=== PATIENT | female | born 1960 | race Caucasian/White ===

== ENCOUNTER 2024-06-13 22:58 | Emergency (ER) | payer SELFPAY ==
[2024-06-13 23:04] VITALS: BP 187/117; PULSE 90; RESP 16; TEMP 36.7; O2SAT 94; BMI 21.9
[2024-06-13 23:55] VITALS: BP 166/79; PULSE 80; RESP 15; O2SAT 99
--- NOTE | 2024-06-14 00:08 | ED_ITS ---
HPI - Dental/Oral General: Chief complaint: Dental/Oral Stated complaint: Left Side Of Face Swollen Time Seen by Provider: 06/13/24 23:15 Source: patient Mode of arrival: ambulatory Limitations: no limitations History of Present Illness: Patient is a 63-year-old female presenting to the emergency department complaining of left-sided facial pain and swelling beginning this morning. She states that as specifically worsening over the past few hours. Does not see a dentist, history of poor dental care and multiple cavities. Denies any trouble breathing or trouble handling secretions. No fever, chills, nausea/vomiting, or other symptoms at this time. Pain rated to be a 10/10. Worse with palpation and with chewing. Onset (ago): hour(s) Duration: constant Relieving factors: nothing Exacerbating factors: chewing and other (Palpation) Context: history of dental caries and poor dental care Associated symptoms: Denies ear or mastoid pain, fever(s) or odynophagia Treatment prior to arrival: none Related Data Previous Rx's Medication Instructions Recorded amoxicillin 875 mg-potassium 1 tab PO BID 10 days #20 tabs 06/14/24 clavulanate 125 mg tablet prednisone 20 mg tablet 60 mg (3 x 20 mg) PO ONCE 5 days 06/14/24 #15 tabs Allergies Allergy/AdvReac Type Severity Reaction Status Date / Time No Known Allergies Allergy Verified 06/13/24 23:08 Review of Systems General: Reports: 10 or more systems reviewed and unremarkable except in HPI and below Const: Denies: fever(s), chills or fatigue Eyes: Denies: change in vision ENMT: Reports: dental pain (With facial swelling); Denies: throat pain, uvular edema, odynophagia, ear or mastoid pain or nasal discharge Card: Denies: chest pain, palpitations, swelling of feet/ankles or lightheadedness Resp: Denies: dyspnea, productive cough or wheezing GI: Denies: abdominal pain, nausea, vomiting, diarrhea or constipation : Denies: flank pain, difficulty voiding, dysuria or urinary frequency Musc: Denies: neck pain, back pain or joint pain Skin/Breast: Denies: rash Neuro: Denies: headache(s), numbness in extremities or weakness in extremities Physical Exam Const: COMMON NORMALS: no acute distress and no limitations GENERAL APPEARANCE: cooperative, comfortable and well developed ORIENTATION/CONSCIOUSNESS: Yes awake HENMT: COMMON NORMALS: normocephalic, atraumatic and hearing grossly normal bilaterally HEAD & SCALP: normocephalic and atraumatic FACE & SINUS: edema on the left and Facial tenderness on exam of face and sinuses on the left TEETH & GINGIVA: Yes abnormal tooth and associated gingiva upper left tender and with associated gingival edema, Yes caries, Yes multiple restorations and Yes poor dentition THROAT: posterior oropharynx normal, tonsils normal and uvula midline; no uvular edema Eye: COMMON NORMALS: Equal, round and reactive pupils present, EOMs intact bilaterally and conjunctivae normal CONJUNCTIVA: Yes conjunctivae normal PUPIL: Yes Equal, round and reactive pupils present Neck/C-Spine: COMMON NORMALS: full ROM, supple and no JVD Resp: COMMON NORMALS: normal respiratory effort, No retractions, No use of accessory muscles and clear to auscultation bilaterally AUSCULTATION: clear to auscultation bilaterally Cardio: COMMON NORMALS: no JVD, regular rate, regular rhythm, No clicks present (Cardio), No murmurs present (Cardio) and No rub (Cardio) RATE: regular rate RHYTHM: regular rhythm Extremity: COMMON NORMALS: normal to inspection, full ROM and capillary refill normal Skin: COMMON NORMALS: no rashes or lesions noted GENERAL SKIN EXAM: no rashes or lesions noted Course Vital Signs: Vital signs: Vital Signs Temperature 98.1 F 06/13/24 23:04 Pulse Rate 80 06/13/24 23:55 Respiratory Rate 15 06/13/24 23:55 Blood Pressure 166/79 06/13/24 23:55 Pulse Oximetry 99 06/13/24 23:55 Oxygen Delivery Me thod Room Air 06/13/24 23:55 MDM - Dental/Oral Medical Decision Making Patient presenting with clinical signs and symptoms of a dental abscess. Poor dental care, does not see a dentist regularly. No physical exam findings concerning for respiratory compromise, did have quite a bit of soft tissue swelling to the left face with significant tenderness to palpation. This favors dental abscess at this time that we will treat with antibiotics and steroids. Will have her follow-up with a dentist for further evaluation, and return with any new or worsening. No radiology studies performed this visit Discharge Plan Discharge Patient Disposition: Home Clinical Impression: Dental abscess Condition: Stable Prescriptions: New prednisone 20 mg tablet 60 mg PO ONCE 5 Days Qty: 15 0RF amoxicillin-pot clavulanate 875-125 mg tablet 1 tab PO BID 10 Days Qty: 20 0RF Discharge Orders: Discharge ED (Routine); Ordered 06/14/24 Ordered By: Newton Jones Patient Instructions: Dental Abscess (ED) Activity Restrictions/Additional Instructions: Take antibiotics as prescribed. Take steroids. Tylenol/ibuprofen for pain. Please call dentist in the morning to schedule an appointment. If you start hav ing any difficulty breathing, trouble handling your secretions, or other concerning symptoms please return to the emergency department. Coding Level of Care Code ED [employer] Psychiatrist for Roro Foster
== END 2024-06-14 00:34 | disposition home or self-care (01) ==
PROVIDERS: Emergency Provider Physician Assistant
DX: K04.7 Periapical abscess without sinus (principal)
CPT/HCPCS: 99283

== ENCOUNTER 2025-05-15 07:02 | Observation (INO) | payer SELFPAY ==
[2025-05-15] VITALS (24 sets, daily range): BP systolic 123–181; BP diastolic 72–103; PULSE 68–109; RESP 16–30; TEMP 36.3–37.1; O2SAT 83–100; BMI 23.5
--- NOTE | 2025-05-15 07:08 | ECG_ITS ---
[facility] Test Date: 2025-05-15 Pat Name: Soniya Vanegas Department: Room: Gender: Female Biostatistician: : 1960 Requested By: Jamaal Calhoun Order Number: [id number] Luis MD: Danielle Rahman M.D. Measurements Intervals Sharon Rate: 79 P: 0 WA: 0 QRS: 17 QRSD: 91 T: 42 QT: 495 QTc: 570 Interpretive Statements regular supraventricular rhythm Heavy baseline artifacts; Need to repeat the study. Further interpretation is not possible Electronically Signed On 05-16-2025 22:13:18 IT SYSTEMS ANALYST by Danielle Rahman M.D. [id number]
--- NOTE | 2025-05-15 07:08 | CT_ITS ---
WS: [id number] CT HEAD TECHNIQUE: Noncontrast CT of the head obtained from the skullbase to the vertex. CLINICAL INFORMATION: Dizziness COMPARISON: 2016 DLP: 1122.[address] scans at [facility] use at least one of these dose optimization techniques: automated exposure control; mA and/or kV adjustment per patient size (includes targeted exams where dose is matched to clinical indication); or iterative reconstruction. FINDINGS: No evidence of intracranial hemorrhage or mass effect. Ventricular system and basal cisterns are patent. Mild small vessel changes with mild parenchymal volume loss. No extra-axial fluid collections. No evidence of mass or mass effect. Vascular calcification. Paranasal sinuses and mastoid air cells are well aerated. .Normal visualized soft tissues. CT/CT head wo con* [id number] IMPRESSION: 1. No evidence of intracranial hemorrhage or mass effect. 2. No acute intracranial findings.
--- NOTE | 2025-05-15 07:08 | XR_ITS ---
WS: [id number] Portable AP upright chest, 05/15/2025 Clinical Data: dyspnea/cough Comparison: Portable chest, 03/13/2019 Findings: There is a patchy opacity in the right lower lobe and over the surface of the left diaphragm which could represent minimal pneumonia and/or atelectasis. No nodules, masses or effusions are seen. The heart is normal. The pulmonary vascularity is not increased. No pneumonia or pneumothorax is seen. The aortic arch and descending thoracic aorta show tortuosity. XR/XR chest 1V portable [id number] Impression: 1. Minimal patchy opacity in right lower lobe and over the surface of the left diaphragm. 2. Atherosclerosis.
--- NOTE | 2025-05-15 07:29 | W.ED.GENADLT ---
HPI - General Adult General: Chief complaint: Nausea/Vomiting/Diarrhea Stated complaint: dizzy, off balance, n/v Time Seen by Provider: 05/15/25 07:07 History of Present Illness: 64-year-old female presents emergency room complaining of dizziness with persistent nausea and vomiting. States she feels hot and cold at times she is extremely anxious and is hyperventilating when she first arrived. Symptoms began yesterday morning when she woke up her last known well without symptoms would have been around midnight on 05/12/2025. Patient is a heavy smoker no history of coronary artery disease or previous strokes. She has not had any difficulty with speech swallowing. She has a difficulty with gait because of the dizziness. Related Data Allergies Allergy/AdvReac Type Severity Reaction Status Date / Time No Known Allergies Allergy Verified 06/13/24 23:08 Course Vital Signs: Vital signs: Vital Signs Temperature 97.4 F L 05/15/25 07:06 Pulse Rate 82 05/15/25 07:06 Respiratory Rate 20 H 05/15/25 07:06 Blood Pressure 142/103 05/15/25 07:06 Pulse Oximetry 100 05/15/25 07:06 Oxygen Delivery Me thod Room Air 05/15/25 07:06 Discharge Plan Discharge Condition: Stable Print Language: Maltese Coding Level of Care Code ED Clamp Jig Assembler for Roro Foster NIH stroke score NIHSS Level Of Consciousness - 1a: 0 Level Of Consciousness Questions - 1b: Both Correct Level Of Consciousness Commands - 1c: Both Correct Best Gaze - 2: Normal Facial Palsy - 4: Normal Motor Arm Right - 5: No Drift Motor Arm Left - 5: No Drift Motor Leg Right - 6: No Drift Motor Leg Left - 6: No Drift Limb Ataxia - 7: Absent Sensory - 8: Normal Best Language - 9: No Aphasia Dysarthia - 10: Normal
[2025-05-15 07:31] LABS: ABG PCO2 26.0 mmHg (35-45); ABG PH Result 7.56 (7.35-7.45); Alveolar-Arterial Oxygen Gradi 6.8 mmHg (5-10); Arterial Blood Gas Hematocrit 52.2 % (37-47); Blood Gas Operator Identificat AMH; Blood Gas Sample Site Brachial, right; Blood Gas Sample Type Arterial; Carboxyhemoglobin 2.1 %THgb (0.4-20.1); Glucose Level-ABG 116.0 mg/dL (70-115); HCO3 ABG 23.1 mmol/L (22-26); Ionized Calcium Level - ABG 1.2 mmol/L (1.1-1.4); Methemoglobin 1.1 % (0.4-1.5); Oxygen Saturation ABG 96.1; PO2 ABG 65.6 mmHg (80.0-100.0); PO2 FiO2 Ratio Arterial Blood 312; Potassium Level - ABG 3.3 mmol/L (3.5-5.0); Sodium Level - ABG 140.0 mmol/L (131-143)
--- NOTE | 2025-05-15 07:37 | CT_ITS ---
WS: [id number] CTA HEAD AND NECK TECHNIQUE: Contrast enhanced CTA of the head and neck with coronal and sagittal reformatted images and maximum intensity projection (MIP) images. NASCET criteria utilized. CLINICAL INFORMATION: Posterior stroke COMPARISON: None. DLP: 452.[address] scans at [facility] use at least one of these dose optimization techniques: automated exposure control; mA and/or kV adjustment per patient size (includes targeted exams where dose is matched to clinical indication); or iterative reconstruction. FINDINGS: RIGHT: RIGHT common carotid artery is patent. No significant RIGHT ICA stenosis. RIGHT ICA is patent to the skull base. LEFT: LEFT common carotid artery is patent. No significant LEFT ICA stenosis. LEFT ICA is patent to the skull base. RIGHT dominant vertebral artery. Smaller but patent LEFT vertebral artery. Proximal basilar artery is patent. Persistent LEFT COOPERER. Normal vascularity to the COOPERER territory bilaterally. Both ICAs are patent at the skull base. Patent anterior communicating artery. Normal vascularity to the GOLDY and MCA territories bilaterally. No evidence of proximal flow-limiting stenosis. Advanced spondylitic changes cervical spine. Proximal subclavian arteries are patent. CT/CT angio headneck* [id number] IMPRESSION: 1. No significant cervical ICA stenosis. 2. No flow-limiting intracranial stenosis.
[2025-05-15 07:38] LABS: Hematocrit 49.8 % (36-47); Hemoglobin 17.40 g/dL (11.27-16.99); Mean Corpuscular HGB Conc 34.9 g/dL (30-55); Mean Corpuscular Hemoglobin 31.9 pg (27-33); Mean Corpuscular Volume 91.4 fl (85-98); Nucleated Red Blood Cells % 0 %; Platelet Count 259 10^3/cmm (157-399); Red Blood Count 5.45 10^6/uL (3.85-5.65); White Blood Count 7.19 10^3/uL (3.29-11.43)
[2025-05-15] MEDS: LORazepam 2 mg/mL INJ 1 mL IVP (07:43)
[2025-05-15 08:41] LABS: Glucose Urine UA Negative (Normal); Nitrate Urine Negative (Negative); Specific Gravity, Urine 1.014 (1.005-1.030)
[2025-05-15 08:43] LABS: Add Urine Microscopic? YES
[2025-05-15 08:48] LABS: Alanine Aminotransferase 10 U/L (0-33); Albumin Level 4.4 g/dL (3.5-5.2); Alkaline Phosphatase 121 U/L (35-105); Anion Gap 17.7 (5-19); Aspartate Amino Transferase 15 U/L (0-32); Blood Urea Nitrogen 13 mg/dL (8-23); Calcium 9.6 mg/dL (8.5-10.5); Carbon Dioxide 24 mmol/L (22-29); Chloride 101 mmol/L (98-107); Creatinine Clr Calc Pharmacy 82.2568; Globulin 2.7 g/dL (1.3-4.6); Glucose 96 mg/dL (65-115); Osmolality Calculated 288 mOsm/kg (285-295); Potassium 3.7 mmol/L (3.5-5.1); Sodium 139 mmol/L (136-145); Total Protein 7.1 g/dL (6.6-8.7)
--- NOTE | 2025-05-15 09:01 | PC.NURSE ---
Pt to CT scan with mickey Jimenez. Earrings removed with melisa jimenez, myself in room. Placed in speciman cup / left jacket pocket zipped in. Pt aware.
[2025-05-15] MEDS: iohexol 350 mg/mL 500 mL Btl (per mL) IV (09:32)
--- NOTE | 2025-05-15 12:34 | P.HP_ITS ---
Providers/Chief Complaint 2 Admitting Physician: Alexis Reid Chief Complaint: dizzy, off balance, n/v History of Present Illness Soniya Vanegas is a 64 year old woman with no established past medical history in the chart who presented to the emergency department for acute onset dizziness with nausea and vomiting. Last known well was Thursday night; symptoms began yesterday morning and persisted into today. On initial presentation, felt anxious and was hyperventilating. Describes spinning sensation inside my head and [id number] rather than up-and-down; dizziness worsens with movement. Denies fever, chills, ear pain, sore throat, diarrhea, rashes, dysuria, reduced hearing, ear drainage, or prior stroke/heart attack. Reports profuse sweating on awakening the last two mornings and a mild cough. Unable to tolerate oral fluids without vomiting; ate two pieces of toast yesterday and has vomited after small sips of water. Notes transient arm tingling/numbness after blood pressure cuff inflation. 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 Prior similar episodes occurred twice in recent months and resolved by mid-afternoon. Reports heavy cigarette smoking (about 2.5 packs/day); in the past two days smoked fewer due to feeling ill. Uses marijuana sometimes. Remote history of dental abscess in 2023. In the ED, received aspirin, lorazepam (Ativan), and intravenous fluids. Review of Systems 2 Const: Reports: change in appetite; Denies: fever(s), chills, body aches or malaise ENMT: Denies: throat pain Card: Denies: chest pain, edema, pre-syncope or dyspnea on exertion Resp: Denies: dyspnea, productive cough, change in phlegm color or hemoptysis GI: Reports: nausea and vomiting; Denies: abdominal pain, diarrhea, constipation, hematochezia or melena : Denies: flank pain, urinary frequency or hematuria Musc: Denies: back pain, joint swelling or joint redness Skin/Breast: Denies: rash or new lesions Neuro: Reports: vertigo; Denies: headache(s) or confusion Medications/Allergies Home Medications ?Medication ?Instructions ?Recorded ?Confirmed ?Last Taken ?Type No Known Home Medications 05/15/2510/04 Unknown History Allergies Allergy/AdvReac Type Severity Reaction Status Date / Time No Known Allergies Allergy Verified 06/13/24 23:08 PFSH Acute 2 PFSH: Social History (Updated 05/15/25 @ 11:54 by Alexis Reid MD) Smoking and tobacco/nicotine status: current every day tobacco/nicotine user Vitals/I&O/Wt Last Vital Signs Temp 97.4 F L 05/15/25 07:06 Pulse 81 05/15/25 11:43 Resp 17 05/15/25 11:38 BP 158/88 05/15/25 11:43 Pulse Ox 96 05/15/25 11:43 O2 Del Method Room Air 05/15/25 11:58 Weight last 48 hrs Weight 68.039 kg Weight 68.039 kg Physical Exam 2 Const: COMMON NORMALS: patient oriented x3 and alert GENERAL APPEARANCE: c ooperative ORIENTATION/CONSCIOUSNESS: Yes awake HENMT: COMMON NORMALS: oropharynx normal Neck/C-Spine: COMMON NORMALS: no JVD Resp: COMMON NORMALS: normal respiratory effort and clear to auscultation bilaterally AUSCULTATION: clear to auscultation bilaterally Cardio: COMMON NORMALS: no JVD, regular rhythm, S1 normal heart sound present, S2 normal heart sound present and No murmurs present (Cardio) RHYTHM: regular rhythm HEART SOUNDS: S1 normal heart sound present and S2 normal heart sound present GI: COMMON NORMALS: Normal to inspection, nondistended, normoactive bowel sounds present, Soft to palpation and non-tender PALPATION: Yes Soft to palpation Extremity: COMMON NORMALS: no joint enlargement and no pedal edema Neuro: COMMON NORMALS: patient oriented x3 and moves all extremities S ENSORIUM/ORIENTATION: Yes alert OTHER: She is awake and alert, conversant. Following directions, although somewhat slowed in responses. No difficulty with horizontal tracking. Without noted horizontal nystagmus. Visual coppola full to confrontation, no visual extinction. Sensory exam symmetrical. No sensory extinction. No upper extremity drift. Minimal right lower extremity drift. FNF normal. Mrvy-nf-[id number] without difficulty. 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 Unable to perform. Skin: COMMON NORMALS: no rashes or lesions noted GENERAL SKIN EXAM: no rashes or lesions noted Data 05/15/25 07:33 05/15/25 08:21 A&P Assessment and plan 1. Vertigo: Acute onset vertiginous sensation with associated nausea/vomiting since yesterday morning; last known well Thursday night; symptoms worsen with movement; prior two similar episodes resolved by mid-afternoon; exam equivocal due to compromised vision in one eye. Possible posterior circulation CVA. Risk factors with elevated risk of cardiovascular disease discussed with her. Encouraged smoking cessation. Possible undiagnosed HTN. EKG on my interpretation possible atrial flutter although very poor quality study. Monitor on telemetry. Repeat EKG. Follow-up official read. - Hints exam equivocal, additionally appears to have mild drift in the right lower extremity. Strong CV risk factors. Discussed pursuing MRI of the brain to further assess for possible ischemic stroke. Symptoms for over 24 hours, was not found to be a candidate for TNK intervention on presentation. No large vessel occlusion on CTA. Reviewed vitals, CBC, ABG, CMP, UA, CT head, CTA head and neck, chest x-ray, EKG, neuroretinal, discussed with ED provider. - Continue aspirin (aspirin already given in ED; plan to repeat). - Nausea and vomiting with poor oral intake, dehydration. Provide intravenous hydration. LR 75 mL/h. Monitor for risk of fluid overload. - Nursing dysphagia screen. Advance diet to clear liquids (e.g., broth, gelatin) when able; verify diet orders. - Provide antiemetic medication as needed (PRN for nausea). - Patient declined viral swab; document refusal. Will place on droplet isolation empirically. - Obtain physical therapy (PT), occupational therapy (OT), and speech therapy evaluations. - Request PT evaluation including Ennice-Hallpike maneuver. - Maintain fall precautions. - Monitor blood pressures. - Monitor on telemetry. - Follow-up with neurology after discharge. - Needs a PCP 2. Malaise: Possible aspiration pneumonitis following nausea and vomiting. Versus acute viral illness. Discussed additional assessment. Currently without signs of sepsis. Afebrile, with leukocytosis, no tachycardia. Mild if any cough. Monitor closely. Will hold off on antibiotic for now. - Patient declined viral swab; document refusal. Will place on droplet isolation empirically. 3. Abnormal circadian rhythm: With possible atrial flutter. Difficult to read with poor quality study/baseline. Appears to have extra P waves, monitor on telemetry. Will repeat EKG. Follow-up official read. Plan: Heavy tobacco use : Reports ~2.5 packs/day; smoked less over past two days due to illness. - Encourage smoking cessation. - Provide nicotine patch; offer nicotine lozenges PRN for cravings. Possible undiagnosed hypertension: Blood pressure 158/88, no known history of hypertension, will need to monitor blood pressure. Consider starting antihypertensive if persisting. Permissive hypertension for now. Will need a PCP. Abnormal arterial blood gas (alkalemia) : ABG: pH 7.56, CO2 26, PO2 65.6. Hemoconcentration (elevated hemoglobin) : Hemoglobin 17.4. Microscopic hematuria on urinalysis : Urinalysis: 21?250 RBCs, 1+ ketones, no bacteria, hyaline casts (2.46). Chest X-ray patchy opacities : Chest X-ray: minimal patchy opacity in right lower lobe and over left diaphragmatic surface; atherosclerosis noted. Possible aspiration pneumonitis following nausea and vomiting. PDMP PDMP Reviewed: Not Reviewed Attestations 2 Medical Necessity Statement*: Place in observation for additional assessment and management of possible CVA, vertigo with nausea vomiting with dehydration and lack of oral intake. and High MDM includes amount and/or complexity of data reviewed/ordered [ previous or external records, resulted lab(s)/test(s), ordered lab(s)/test(s), independent test interpretation and other healthcare professional discussion] and described risk of complication, morbidity or mortality of management as documented Diagnoses Vertigo R42 Malaise R53.81 Abnormal circadian rhythm G47.20
--- NOTE | 2025-05-15 12:37 | USCV_ITS ---
Soniya Vanegas Age: 64 Gender: F : 1960 Exam Date: 05/15/2025 15:16 Ordering Phys: Alexis Reid MD Technologist: MARTHA [place] [facility] [place]: CVA BP: 158 / 88 HR: Rhythm: Sinus Technical Quality: MEASUREMENTS (Male / Female) Normal Values 2D ECHO LV Diastolic Diameter PLAX 5.0 cm 4.2 - 5.9 / 3.9 - 5.3 cm IVS Diastolic Thickness 0.8 cm 0.6 - 1.0 / 0.6 - 0.9 cm IVS Systolic Thickness 0.9 cm LVPW Diastolic Thickness 0.9 cm 0.6 - 1.0 / 0.6 - 0.9 cm LVPW Systolic Thickness 0.9 cm LVOT Diameter 2.0 cm LV Ejection Fraction 2D Teich 14.3 % LV Ejection Fraction MOD 4C 68.4 % LV Ejection Fraction MOD 2C 61.7 % LV Ejection Fraction 2C AL 63.5 % LA Diameter 2.7 cm RA Systolic Volume 4C AL 30.5 ml RA Systolic Volume 4C MOD 29.3 ml LA Sys Volume AL 20.1 cm cubed LA Sys Volume Index AL 11.2 cm cubed/m squared Aorta at Sinotubular Diameter 2.7 cm M-MODE LA Ao Ratio MM 1.0 AV Cusp Separation MM 1.9 cm FINDINGS Left Ventricle Normal left ventricular size and systolic function, EF 62%..no regional wall motion abnormalities. Right Ventricle Normal right ventricular size and systolic function. Right Atrium Normal right atrial size. Left Atrium Normal left atrial size. IA Septum Normal appearance of the interatrial septum. Mitral Valve No gross abnormalities noted Aortic Valve No gross abnormalities noted Tricuspid Valve No gross abnormalities noted Pulmonic Valve No gross abnormalities noted Pericardium No pericardial effusion. Aorta Normal aortic annulus size. IVC Normal IVC diameter. CONCLUSIONS Normal left ventricular size and systolic function, EF 62%..no regional wall motion abnormalities. Normal chamber sizes. No gross valvular abnormalities. There is no pericardial effusion. There are no intracardiac masses. No similar previous studies are available for comparison Dr Danielle Rahman MD [facility] (Electronically Signed) Final Date: 15 May 2025 16:34 S
--- NOTE | 2025-05-15 12:39 | MRR_ITS ---
PROCEDURE INFORMATION: Exam: MR Head Without Contrast Exam date and time: 05/15/2025 5:01 PM Age: 64 years old Clinical indication: Dizziness; Additional info: Poss CVA TECHNIQUE: Imaging protocol: Magnetic resonance imaging of the head without contrast. COMPARISON: CT angio headneck* [id number] 05/15/2025 9:08 AM FINDINGS: Brain: No acute intra-axial hemorrhage. No masses. No evidence of restricted diffusion/acute ischemia. No midline shift or mass effect. Mild patchy T2 hyperintensity in hemispheric white matter bilaterally most likely due to chronic microangiopathy. Cerebral ventricles: Normal. No ventriculomegaly. Bones: Unremarkable. Paranasal sinuses: Normal as visualized. No acute sinusitis. Mastoid air cells: Normal as visualized. No mastoid effusion. Orbital cavities: Unremarkable. Soft tissues: Unremarkable. MR/MR head wo con* [id number] IMPRESSION: No acute findings.
--- NOTE | 2025-05-15 12:59 | ECG_ITS ---
[facility] Test Date: 2025-05-15 Pat Name: Soniya Vanegas Department: Room: 262 Gender: Female Web Analytics Developer: : 1960 Requested By: Alexis Reid Order Number: [id number] Luis MD: Danielle Rahman M.D. Measurements Intervals Oriental Rate: 80 P: 65 OH: 173 QRS: -1 QRSD: 91 T: 19 QT: 385 QTc: 447 Interpretive Statements SINUS RHYTHM Compared to ECG 05/15/2025 07:17:25 Supraventricular rhythm no longer present Myocardial infarct finding no longer present T-wave abnormality no longer present Possible ischemia no longer present Electronically Signed On 05-16-2025 22:23:49 DIRECTOR OF SLOT OPERATIONS by Danielle Rahman M.D. [email or web address] [id number]
[2025-05-15 14:23] LABS: Thyroid Stimulating Hormone 1.85 uIU/mL (0.27-4.20)
--- NOTE | 2025-05-15 16:37 | PC.SLP ---
Pt going for MRI. Unable to assess at this time. FUNERAL PRE ARRANGEMENT SPECIALIST will follow-up with the pt tomorrow.
[2025-05-15] MEDS: ondansetron 2 mg/ML SDV 2 mL 4 MG IVP (18:18)
[2025-05-16] VITALS (13 sets, daily range): BP systolic 138–161; BP diastolic 78–83; PULSE 66–82; RESP 16–18; TEMP 36.6–37.1; O2SAT 93–95
[2025-05-16] MEDS: ondansetron 2 mg/ML SDV 2 mL 4 MG IVP ×2 (03:53→08:35)
[2025-05-16 05:38] LABS: Cholesterol 201 mg/dL (0-200); HDL Cholesterol 45 mg/dL (60-100); Triglycerides 97 mg/dL (0-150)
[2025-05-16 05:53] LABS: Estmated Average Glucose 85; Hemoglobin A1C 4.6 % (4.0-6.0)
--- NOTE | 2025-05-16 09:15 | PC.CHAP ---
Pastoral Care Encounter/Spiritual Assessment Type of Contact [] Declined asset protection greeter visit [] Patient/Family/Request visit [] Outpatient visit [] Follow-up visit [] Physician referral [] Code/Alert [x] Routine visit [] Staff referral [] Actively dying [] Patient sleeping [] Family support [] [] Out of room [] Palliative care [] [] Receiving care in room [] Pre-surgical visit [] Trauma [] Long length of stay [] ICU visit [] Other: Relational/Emotional Strength [x] Patient feels connected with others/family/visitors/staff [] Distress [] Loneliness/isolation [] Abandonment Spirituality of Patient [x] Person of Teri [] Attends Hoahaoism of their Teri [x] Believes in Prayer [] Reads Bible or Synagogue materials [] There are Spiritual issues to be addressed Steam Setter Interventions [x] Prayer [x] Active listening [x] Non-anxious presence [x] Spiritual/emotional support [] Crisis/trauma care [] Spiritual counseling [] Bereavement support [] Provided bereavement packet [] Provided Bible/devotional materials [] Provided toy/stuffed animal, coloring book to patient or family member [] Provided Communion [] Anointing/[place] [] Salvation [x] Completed spiritual assessment [] Other: Impact on Illness or Injury [] Angry [] Fearful [] Anxious [] Often cries [] Exhaustion [] Unable to work [] Unable to attend gnosticism [] Unable to walk/stand [] Unable to read [] Unable to drive [] Unable to eat/drink [] Unable to sleep [] Unable to be with family [] Patient intubated [] Other: Summary Time spent with patient 5 min
--- NOTE | 2025-05-16 09:22 | P.PN_ITS ---
Subjective 2 Subjective: She is feeling worse. With more nausea and vomiting. Intermittent vertigo. Denies other new symptoms of numbness or weakness apart from the blood pressure cuff squeezing her left arm. Has not been able to tolerate clears this morning. Also having a headache. Vitals/I&O/Wt Last Vital Signs Temp 98.3 F 05/16/25 07:51 Pulse 72 05/16/25 07:51 Resp 18 05/16/25 07:51 BP 152/83 05/16/25 07:51 Pulse Ox 94 05/16/25 07:51 O2 Del Method Room Air 05/16/25 07:51 05/15/25 05/16/25 05/16/25 22:59 06:59 14:59 Intake Total 1000 / 1000 931.25 / 1931.25 240 / 240 Output Total 600 / 600 200 / 800 300 / 300 Balance 400 / 400 731.25 / 1131.25 -60 / -60 Weight last 48 hrs Weight 75.296 kg Weight 68.039 kg Weight 68.039 kg Physical Exam 2 Const: COMMON NORMALS: patient oriented x3 and alert GENERAL APPEARANCE: c ooperative ORIENTATION/CONSCIOUSNESS: Yes awake HENMT: COMMON NORMALS: oropharynx normal Neck/C-Spine: COMMON NORMALS: no JVD Resp: COMMON NORMALS: normal respiratory effort and clear to auscultation bilaterally AUSCULTATION: clear to auscultation bilaterally Cardio: COMMON NORMALS: no JVD, regular rhythm, S1 normal heart sound present, S2 normal heart sound present and No murmurs present (Cardio) RHYTHM: regular rhythm HEART SOUNDS: S1 normal heart sound present and S2 normal heart sound present GI: COMMON NORMALS: Normal to inspection, nondistended, normoactive bowel sounds present, Soft to palpation and non-tender PALPATION: Yes Soft to palpation Extremity: COMMON NORMALS: no joint enlargement and no pedal edema Neuro: COMMON NORMALS: patient oriented x3 and moves all extremities S ENSORIUM/ORIENTATION: Yes alert OTHER: She is awake and alert, conversant. Following directions, although somewhat slowed in responses. No difficulty with horizontal tracking. Without noted horizontal nystagmus. Visual coppola full to confrontation, no visual extinction. Sensory exam symmetrical. No sensory extinction. No upper extremity drift. Minimal right lower extremity drift. FNF normal. [id number] without difficulty. 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 Unable to perform. Skin: COMMON NORMALS: no rashes or lesions noted GENERAL SKIN EXAM: no rashes or lesions noted Data 05/15/25 07:33 05/15/25 08:21 A&P Assessment and plan 1. Vertigo: Unimproved. More nausea and vomiting. Intermittent vertigo. Was not able to tolerate clears. Otherwise without new neurological symptoms. Reviewed MRI, discussed with her without possible large acute CVA. She is complaining of headache as well. Discussed possibilities, small CVA possible which was not visualized on MRI, alternatively this may be part of constellation of symptoms from acute viral illness as she is now also having headache, malaise. Declined viral swab. Continue droplet isolation. Continue IV hydration for now as she has not been able to tolerate clears yet. Acute onset vertiginous sensation with associated nausea/vomiting since yesterday morning; last known well Thursday night; symptoms worsen with movement; prior two similar episodes resolved by mid-afternoon; exam equivocal due to compromised vision in one eye. With concern for possible atrial flutter yesterday on initial EKG, reviewed second EKG, sinus rhythm. Reviewed telemetry, also all sinus rhythm without arrhythmia. Discussed with her. Discussed consideration of monitor at discharge. - Continue aspirin - Nausea and vomiting with poor oral intake, dehydration. Provide intravenous hydration. LR 75 mL/h. Monitor for risk of fluid overload. - Nursing dysphagia screen. Advance diet to clear liquids (e.g., broth, gelatin) when able; verify diet orders. - Provide antiemetic medication as needed (PRN for nausea). Increased frequency to every 4 hours. - Patient declined viral swab; document refusal. Droplet isolation empirically. - Pending physical therapy (PT), occupational therapy (OT), and speech therapy evaluations. - Request PT evaluation including [place]-Hallpike maneuver. - Maintain fall precautions. - Monitor blood pressures. - Monitor on telemetry. - Consider follow-up with neurology after discharge. - Needs a PCP 2. Malaise: Reviewed oxygenation with possible aspiration pneumonitis, saturating in mid 90s on room air. Afebrile. Today is having some headache. No shortness of breath. Clear liquids for now until tolerating oral intake better. Antiemetic frequency increased. Possible aspiration pneumonitis following nausea and vomiting. Versus acute viral illness. Discussed additional assessment. Currently without signs of sepsis. Afebrile, with leukocytosis, no tachycardia. Mild if any cough. Monitor closely. Will hold off on antibiotic for now. - Patient declined viral swab; document refusal. Will place on droplet isolation empirically. 3. Abnormal heart rhythm: With possible atrial flutter. Difficult to read with poor quality study/baseline. Appears to have extra P waves, monitor on telemetry. Reviewed repeat EKG. Follow-up official read. Plan: Heavy tobacco use : Reports ~2.5 packs/day; smoked less over past two days due to illness. - Encourage smoking cessation. - Requested nicotine patch; offer nicotine lozenges PRN for cravings. Possible undiagnosed hypertension: Blood pressure 152/83, no known history of hypertension, will need to monitor blood pressure. Consider starting antihypertensive if persisting. Permissive hypertension for now. Will need a PCP. Abnormal arterial blood gas (alkalemia) : ABG: pH 7.56, CO2 26, PO2 65.6. Respiratory alkalosis due to tachypnea. Tachypnea resolving. Hemoconcentration (elevated hemoglobin) : Hemoglobin 17.4. IV fluid for dehydration and encourage smoking cessation. Microscopic hematuria on urinalysis : Urinalysis: 21?25 RBCs, 1+ ketones, no bacteria, hyaline casts (2.46). Urine culture obtained and pending. Chest X-ray patchy opacities : Chest X-ray: minimal patchy opacity in right lower lobe and over left diaphragmatic surface; atherosclerosis noted. Possible aspiration pneumonitis following nausea and vomiting. PDMP PDMP Reviewed: Not Reviewed Attestations 2 Medical Necessity Statement*: Continue hospitalization for further care due to persistent nausea vomiting, intolerance of oral intake, vertigo. and High MDM includes amount and/or complexity of data reviewed/ordered [ resulted lab(s)/test(s), ordered lab(s)/test(s) and other healthcare professional discussion] and described risk of complication, morbidity or mortality of management as documented Diagnoses Vertigo R42 Malaise R53.81 Abnormal heart rhythm I49.9
--- NOTE | 2025-05-17 15:47 | PM.DCS ---
Discharge Providers Date of Admission: 05/15/25 10:41 Date of Discharge: May 17, 2025 Attending Provider at Admission: Alexis Reid Attending Provider at Discharge: Alexis Reid Diagnoses at Discharge Discharge Diagnosis 1. Vertigo: 2. Malaise: 3. Abnormal heart rhythm: Reason for Visit Reason for Visit: dizzy, off balance, n/v Brief History: Soniya Vanegas is a 64 year old woman with no established past medical history in the chart who presented to the emergency department for acute onset dizziness with nausea and vomiting. Last known well was Thursday night; symptoms began yesterday morning and persisted into today. On initial presentation, felt anxious and was hyperventilating. Describes spinning sensation inside my head and [id number] rather than up-and-down; dizziness worsens with movement. Denies fever, chills, ear pain, sore throat, diarrhea, rashes, dysuria, reduced hearing, ear drainage, or prior stroke/heart attack. Reports profuse sweating on awakening the last two mornings and a mild cough. Unable to tolerate oral fluids without vomiting; ate two pieces of toast yesterday and has vomited after small sips of water. Notes transient arm tingling/numbness after blood pressure cuff inflation. 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 Prior similar episodes occurred twice in recent months and resolved by mid-afternoon. Reports heavy cigarette smoking (about 2.5 packs/day); in the past two days smoked fewer due to feeling ill. Uses marijuana sometimes. Remote history of dental abscess in 2023. In the ED, received aspirin, lorazepam (Ativan), and intravenous fluids. Hospital Course Hospital Course She had persistence and intermittent recurrence of vertigo with gradual improvement. 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 With some mild cough, headache, malaise, she declined viral studies. Required IV hydration due to persistence of nausea and vomiting and inability to tolerate oral intake and dehydration. This gradually improved and she was able to advance diet to regular. Was assessed by PT and able to ambulate safely. [place]-Hallpike was attempted and was negative although she did not tolerated very well. Stroke risk factors were discussed with her, and she continued on low-dose aspirin, statin, with instructions on smoking cessation, as well as with finding of hypertension started on amlodipine. Initial EKG equivocal for possible atrial flutter, although poor quality study. No atrial fibrillation or flutter on repeat EKG or telemetry monitoring noted in the hospital. She is set up with a quality assurance monitor body at discharge to further assess for atrial flutter or fibrillation episodes as discussed with her. She requested to discharge in the evening of 05/16. On presentation also with mild microscopic hematuria, urine cultures were obtained, with 10-20,000 mixed superficial mony. Please follow-up for resolution of microscopic hematuria and in case of persistence refer for further urological assessment due to history of smoking. Physical Exam Const: COMMON NORMALS: patient oriented x3 and alert GENERAL APPEARANCE: cooperative ORIENTATION/CONSCIOUSNESS: Yes awake HENMT: COMMON NORMALS: oropharynx normal Neck/C-Spine: COMMON NORMALS: no JVD Resp: COMMON NORMALS: normal respiratory effort and clear to auscultation bilaterally AUSCULTATION: clear to auscultation bilaterally Cardio: COMMON NORMALS: no JVD, regular rhythm, S1 normal heart sound present, S2 normal heart sound present and No murmurs present (Cardio) RHYTHM: regular rhythm HEART SOUNDS: S1 normal heart sound present and S2 normal heart sound present GI: COMMON NORMALS: Normal to inspection, nondistended, normoactive bowel sounds present, Soft to palpation and non-tender PALPATION: Yes Soft to palpation Extremity: COMMON NORMALS: no joint enlargement and no pedal edema Neuro: COMMON NORMALS: patient oriented x3 and moves all extremities SENSORIUM/ORIENTATION: Yes alert OTHER: She is awake and alert, conversant. Following directions, although somewhat slowed in responses. No difficulty with horizontal tracking. Without noted horizontal nystagmus. Visual coppola full to confrontation, no visual extinction. Sensory exam symmetrical. No sensory extinction. No upper extremity drift. Minimal right lower extremity drift. FNF normal. [id number] without difficulty. 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 Unable to perform. Skin: COMMON NORMALS: no rashes or lesions noted GENERAL SKIN EXAM: no rashes or lesions noted Discharge Data Studies Completed and Pending Completed Studies During Hospitalization Category Date Time Status CT head wo con* [id number] Stat Cat Scan 05/15/25 07:08 Completed CTA head neck [CT angio headneck* [id number]] Stat Cat Scan 05/15/25 07:37 Completed XR chest 1V portable [id number] Stat Exams 05/15/25 07:08 Completed MR head wo con* [id number] Routine MRI 05/15/25 12:39 Completed CV. echo lmt wo/w bubble [id number] Routine Ultrasound 05/15/25 12:37 Completed Radiology Impressions Chest X-Ray 05/15/25 07:08 Impression: 1. Minimal patchy opacity in right lower lobe and over the surface of the left diaphragm. 2. Atherosclerosis. Head CT 05/15/25 07:08 IMPRESSION: 1. No evidence of intracranial hemorrhage or mass effect. 2. No acute intracranial findings. Head/Neck CTA 05/15/25 07:37 IMPRESSION: 1. No significant cervical ICA stenosis. 2. No flow-limiting intracranial stenosis. Head MRI 05/15/25 12:39 IMPRESSION: No acute findings. Laboratory Results WBC 7.19 10^3/uL (3.29-11.43) 05/15/25 07:33 RBC 5.45 10^6/uL (3.85-5.65) 05/15/25 07:33 Hgb 17.40 g/dL (11.27-16.99) H 05/15/25 07:33 Hct 49.8 % (36-47) H 05/15/25 07:33 MCV 91.4 fl (85-98) 05/15/25 07:33 MCH 31.9 pg (27-33) 05/15/25 07:33 MCHC 34.9 g/dL (30-55) 05/15/25 07:33 RDW 12.6 % (12.1-15.1) 05/15/25 07:33 Plt Count 259 10^3/cmm (157-399) 05/15/25 07:33 MPV 9.4 fL (7.4-10.4) 05/15/25 07:33 Neut % (Auto) 69.2 % 05/15/25 07:33 Lymph % (Auto) 25.0 % 05/15/25 07:33 [place] % (Auto) 4.5 % 05/15/25 07:33 Eos % (Auto) 0.3 % 05/15/25 07:33 Baso % (Auto) 0.7 % 05/15/25 07:33 Neut # (Auto) 4.98 10^3/uL (1.8-7.7) 05/15/25 07:33 Lymph # (Auto) 1.8 10^3/uL (0.8-4.8) 05/15/25 07:33 [place] # (Auto) 0.3 10^3/uL (0.2-0.9) 05/15/25 07:33 Eos # (Auto) 0.0 10^3/uL (0.0-0.8) 05/15/25 07:33 Baso # (Auto) 0.1 10^3/uL (0.0-0.1) 05/15/25 07:33 Nucleated RBC % (auto) 0 % 05/15/25 07:33 Nucleated RBCs # 0.0 /100WBC 05/15/25 07:33 Specimen Type Arterial 05/15/25 07:20 Sample Site Brachial, right 05/15/25 07:20 ABG pH 7.56 (7.35-7.45) H 05/15/25 07:20 ABG pCO2 26.0 mmHg (35-45) L 05/15/25 07:20 ABG pO2 65.6 mmHg (80.0-100.0) L 05/15/25 07:20 ABG PO2/FiO2 Ratio 312 05/15/25 07:20 ABG HCO3 23.1 mmol/L (22-26) 05/15/25 07:20 ABG O2 Saturation 96.1 05/15/25 07:20 ABG Base Excess 2.5 mmol/L (-2.0-2.0) H 05/15/25 07:20 Mc Test N/a 05/15/25 07:20 A-a O2 Gradient 6.8 mmHg (5-10) 05/15/25 07:20 Hematocrit 52.2 % (37-47) H 05/15/25 07:20 Hgb O2 Saturation 93.0 % (95-100) L 05/15/25 07:20 Carboxyhemoglobin 2.1 %THgb (0.4-20.1) 05/15/25 07:20 Methemoglobin 1.1 % (0.4-1.5) 05/15/25 07:20 Total Hemoglobin 17.0 g/dL (12-16) H 05/15/25 07:20 Sodium 140.0 mmol/L (131-143) 05/15/25 07:20 Potassium 3.3 mmol/L (3.5-5.0) L 05/15/25 07:20 Glucose 116.0 mg/dL (70-115) H 05/15/25 07:20 Ionized Calcium 1.2 mmol/L (1.1-1.4) 05/15/25 07:20 O2 Delivery Device Room air 05/15/25 07:20 FiO2 21.0 % 05/15/25 07:20 Licensed Bondsman ID Amh 05/15/25 07:20 Sodium 139 mmol/L (136-145) 05/15/25 08:21 Potassium 3.7 mmol/L (3.5-5.1) 05/15/25 08:21 Chloride 101 mmol/L (98-107) 05/15/25 08:21 Carbon Dioxide 24 mmol/L (22-29) 05/15/25 08:21 Anion Gap 17.7 (5-19) 05/15/25 08:21 BUN 13 mg/dL (8-23) 05/15/25 08:21 Creatinine 0.7 mg/dL (0.5-0.9) 05/15/25 08:21 GFR Calculation 84.2 mL/min (90-130) L 05/15/25 08:21 Glucose 96 mg/dL (65-115) 05/15/25 08:21 Estimat Average Glucose 85 05/16/25 04:53 Hemoglobin A1c 4.6 % (4.0-6.0) 05/16/25 04:53 Calculated Osmolality 288 mOsm/kg (285-295) 05/15/25 08:21 Calcium 9.6 mg/dL (8.5-10.5) 05/15/25 08:21 Total Bilirubin 0.7 mg/dL (0.15-1.2) 05/15/25 08:21 AST 15 U/L (0-32) 05/15/25 08:21 ALT 10 U/L (0-33) 05/15/25 08:21 Alkaline Phosphatase 121 U/L (35-105) H 05/15/25 08:21 Total Protein 7.1 g/dL (6.6-8.7) 05/15/25 08:21 Albumin 4.4 g/dL (3.5-5.2) 05/15/25 08:21 Globulin 2.7 g/dL (1.3-4.6) 05/15/25 08:21 Triglycerides 97 mg/dL (0-150) 05/16/25 04:53 Cholesterol 201 mg/dL (0-200) H 05/16/25 04:53 LDL Cholesterol, Calc 137 mg/dL (50-129) H 05/16/25 04:53 HDL Cholesterol 45 mg/dL (60-100) L 05/16/25 04:53 LDL/HDL Ratio 3.04 RATIO (0.00-3.22) 05/16/25 04:53 Cholesterol/HDL Ratio 4.47 mg/dL (0.0-4.40) H 05/16/25 04:53 TSH 1.85 uIU/mL (0.27-4.20) 05/15/25 08:02 Urine Color Yellow (Yellow) 05/15/25 08:09 Urine Appearance Cloudy (CLEAR) A 05/15/25 08:09 Urine pH 7.0 (5-7) 05/15/25 08:09 Ur Specific [place] 1.014 (1.005-1.030) 05/15/25 08:09 Urine Protein 2+ (Negative) A 05/15/25 08:09 Urine Glucose (UA) Negative (Normal) 05/15/25 08:09 Urine Ketones 1+ (Negative) H 05/15/25 08:09 Urine Blood 2+ (Negative) A 05/15/25 08:09 Urine Nitrate Negative (Negative) 05/15/25 08:09 Urine Bilirubin Negative (Negative) 05/15/25 08:09 Urine Urobilinogen 1.0 mg/dL (Negative) 05/15/25 08:09 Ur Leukocyte Esterase Negative (Negative) 05/15/25 08:09 Urine RBC 21-50 /hpf (0-2) H 05/15/25 08:09 Urine WBC 0-5 /hpf (0-5) 05/15/25 08:09 Ur Squamous Epith Cells 6-10 /hpf (0-5) 05/15/25 08:09 Amorphous Sediment Not Reportable 05/15/25 08:09 Urine Bacteria None seen /hpf (NONE) 05/15/25 08:09 Hyaline Casts 2.46 /lpf 05/15/25 08:09 Vitals Last Vital Signs Temp 98.3 F 05/16/25 18:52 Pulse 66 05/16/25 18:52 Resp 18 05/16/25 18:52 BP 161/81 05/16/25 18:52 Pulse Ox 94 05/16/25 18:52 O2 Del Method Room Air 05/16/25 15:51 Discharge Plan Discharge Patient Disposition: Home Condition: Stable Prescriptions: New atorvastatin 40 mg Tablet 40 mg PO BEDTIME Qty: 90 0RF amlodipine 5 mg Tablet 5 mg PO DAILY Qty: 90 0RF nicotine 21 mg/24 hr Patch 24 Hour 1 patch transdermal DAILY Qty: 90 0RF nicotine (polacrilex) 4 mg Lozenge 4 mg mucous membrane Q4H PRN (Reason: Nicotine Cravings) Qty: 90 3RF aspirin 81 mg tablet 81 mg PO DAILY Qty: 90 0RF ondansetron HCl 4 mg tablet 4 mg PO Q8H PRN (Reason: nausea and vomiting) 4 Days Qty: 12 2RF Discharge Order = DC NOW: Discharge Order (Routine); Ordered 05/16/25 Ordered By: Alexis Reid Other Ambulatory Orders: MCT/Event Monitor 21 Days (Routine) Timeframe: 21 Days Facility: [facility] - [facility] Ordered By: Alexis Reid Referrals: Radha Hooks MD [Physician, Neurology] - 2 weeks Referral Note: poss post circ cva We have notified your physician's clinic of the need for a follow-up appointment to be scheduled. If you have not heard from them within the next 2 business days, please call them directly. Vishnu Vera MD [Physician, Family Practice] - 05/23/25 8:00 am Discharge Diet: Cardiac Discharge Activity: As per PT/OT instructions Patient Instructions: Amlodipine (By mouth), How to Stop Smoking (GEN), Vertigo (GEN), Cigarette Smoking and Your Health (GEN), Ischemic Stroke (GEN), Chronic Hypertension (GEN), Fall Prevention (GEN), Stroke Stoplight, Patient Portal & [place] Instructions Activity Restrictions/Additional Instructions: Please stop smoking, continue smoking will increase your risk of recurrent stroke, heart attack, as well as lung disease, various cancers and other complications. Please follow-up with your primary doctor as well as with neurology for additional assessment of the possible small posterior circulation stroke. In addition to stopping smoking you are started on low-dose aspirin and cholesterol medication to help reduce chance of recurrence of cardiovascular events. You are also found to have hypertension, you are started on amlodipine to help you manage blood pressures. Please monitor blood pressures twice daily, write down values to bring to her appointment. Target blood pressure is 120/80 long-term. Use Zofran as needed for nausea. Maintain fall precautions, sit down or lie down immediately if you are getting very dizzy, avoid walking to prevent falls and injury. With possible atrial flutter on initial EKG, you are also referred for quality assurance monitor body. Please follow-up with your primary doctor after completion to assess for atrial flutter or fibrillation which may predispose to increased risk of stroke. Follow-up with your primary doctor for reassessment of resolution of aspiration pneumonitis (mild inflammation of the lung likely after vomiting). Seek medical attention in case of any worsening or new concerning symptoms. Discharge Attestations Time Spent in Discharge Care*: greater than 30 min Quality Metrics Clinical Quality Measures [ Cerebrovascular Accident { Contraindication to Antithrombotic: None; antithrombotic prescribed; Contraindication to Anticoagulation: Overlap treatment not indicated; Contraindication to Statin: None; Statin prescribed;}] Coding Level of Care Code 52853 Total time (in minutes) for Discharge: 45 Diagnoses Vertigo R42 Malaise R53.81 Abnormal heart rhythm I49.9
== END 2025-05-16 18:55 | disposition home or self-care (01) ==
LOC: ER 07:52 → MEDSURG 13:52
PROVIDERS: Admitting Provider Internal Medicine; Emergency Provider Family Medicine; Visit Provider Internal Medicine
DX: R42 Dizziness and giddiness (principal); R53.81 Other malaise; I49.9 Cardiac arrhythmia, unspecified; F17.200 Nicotine dependence, unspecified, uncomplicated
CPT/HCPCS: 36415; 36600; 70450; 70496; 70498; 70551; 71045; 80051; 80053; 80061; 81001; 82330; 82805; 83036; 84443; 85025; 87086; 92523; 92610; 93005; 96361; 96372; 96374; 96375; 96376; 97161; 97165; 99285; C8924; G0378; J1650; J2060; J2405; J7030; J7120; J9999